=== PATIENT | female | born 1990 | race Caucasian/White ===

== ENCOUNTER 2017-08-28 18:52 | Emergency (ER) | payer SELFPAY ==
[~2017-08-28] VITALS: Ht 167.6 cm; Wt 113.4 kg
[~2017-08-28 18:52] MED LIST: ASPIR LOW81 MG PO; ASPIRIN81 MG PO; BACTRIM DS 8001 TA1 PO; BACTROBAN2% TP; FLONASE 0.05% 121 EA NAS; IBUPROFEN800 MG PO; MACROBID100 M1 PO; MOTRIN600 MG PO; PERCOCET 325 MG1 TA2 PO; PRENATAL VITAMI1 TAB PO; PRENATAL1 TA1 PO; PYRIDIUM200 MG PO; VITAMIN C1 CRY; VITAMIN D1000 IU PO; VITAMIN D31000 I2 PO; ZITHROMAX Z PA250 MG PO; ZITHROMAX250 MG PO; ZOFRAN ODT4 MG PO; ZOFRAN ODT4 MG SL
[2017-08-28 19:26] LABS: BILIRUBIN NEGATIVE (NEGATIVE); BLOOD NEGATIVE (NEGATIVE); CLARITY CLEAR (CLEAR); COLOR YELLOW (YELLOW); GLUCOSE NEGATIVE (NEGATIVE); KETONE NEGATIVE (NEGATIVE); LEUKO ESTERASE NEGATIVE (NEGATIVE); NITRITE NEGATIVE (NEGATIVE); PH 6.5 (5.0-9.0); UROBILINOGEN 0.2 E.U./dl (0.2-1.0)
[2017-08-28 19:39] LABS: BACTERIA 1+; RBC 0-2 rbc/hpf (0-2)
== END 2017-08-28 20:34 | disposition home or self-care (01) ==
LOC: ED 18:52
PROVIDERS: Nurse Practitioner Family
DX: R30.0 Dysuria (principal); Z90.49 Acquired absence of other specified parts of digestive tract; Z79.82 Long term (current) use of aspirin; Z79.899 Other long term (current) drug therapy; Z88.6 Allergy status to analgesic agent

== ENCOUNTER 2017-11-10 17:45 | Emergency (ER) | payer OTHER ==
[~2017-11-10] VITALS: Ht 170.1 cm; Wt 113.4 kg
[2017-11-10] MEDS ORDERED: ROBAXIN500 M1 PO (19:25)
[2017-11-10] MEDS ORDERED: ANAPROX DS550 MG PO (19:25)
== END 2017-11-10 19:38 | disposition home or self-care (01) ==
LOC: ED 17:45
DX: S39.012A Strain of muscle, fascia and tendon of lower back, initial encounter (principal); Z88.8 Allergy status to other drugs, medicaments and biological substances; Z79.82 Long term (current) use of aspirin; X58.XXXA Exposure to other specified factors, initial encounter; Y93.89 Activity, other specified; Y92.89 Other specified places as the place of occurrence of the external cause; Y99.8 Other external cause status

== ENCOUNTER 2019-01-09 21:00 | Emergency (ER) | payer OTHER ==
[~2019-01-09] VITALS: Ht 167.6 cm; Wt 107.0 kg
[~2019-01-09 21:00] MED LIST changes: +ANAPROX DS550 MG PO; +ROBAXIN500 M1 PO
[2019-01-09 21:58] LABS: BILIRUBIN NEGATIVE (NEGATIVE); BLOOD NEGATIVE (NEGATIVE); CLARITY CLEAR (CLEAR); COLOR YELLOW (YELLOW); GLUCOSE NEGATIVE (NEGATIVE); KETONE NEGATIVE (NEGATIVE); LEUKO ESTERASE NEGATIVE (NEGATIVE); NITRITE NEGATIVE (NEGATIVE); PH 6.5 (5.0-9.0); UROBILINOGEN 0.2 E.U./dl (0.2-1.0)
[2019-01-09 22:09] LABS: BACTERIA TRACE
[2019-01-09] MEDS ORDERED: Meclizine25 MG PO (23:21)
== END 2019-01-09 23:40 | disposition home or self-care (01) ==
LOC: ED 21:00
PROVIDERS: Nurse Practitioner Family
DX: R42 Dizziness and giddiness (principal); R11.0 Nausea; H53.8 Other visual disturbances; Z88.8 Allergy status to other drugs, medicaments and biological substances; Z79.899 Other long term (current) drug therapy; Z79.82 Long term (current) use of aspirin

== ENCOUNTER → 2021-04-06 | Outpatient (CLI) | payer OTHER ==
[~2021-04-06] MED LIST changes: +Meclizine25 MG PO
== END | disposition home or self-care (01) ==
LOC: COVID19 18:35
PROVIDERS: ATTEND Internal Medicine
DX: U07.1 COVID-19 (principal)

== ENCOUNTER → 2024-08-16 | Outpatient (CLI) | payer OTHER | END | disposition home or self-care (01) | LOC: MAMMO 09:19 | PROVIDERS: ATTEND Nurse Practitioner Women's Health | DX: Z12.31 Encounter for screening mammogram for malignant neoplasm of breast (principal); R92.323 Mammographic fibroglandular density, bilateral breasts ==